=== PATIENT | female | born 1985 | race American Indian/Alaskan Native ===

== ENCOUNTER 2016-12-23 20:40 | Inpatient (IN) | payer OTHER ==
[2016-12-23 21:37] LABS: BASOPHIL 0.3 % (0-2.0); EOSINOPHIL 1.1 % (0-4.5); MCH 29.1 pg (25.7-33.7); MCHC 34.5 g/dl (32.0-36.0); MEAN CELL VOLUME 84.4 fl (80-96); MEAN PLT VOLUME 8.2 fl (7.5-11.1); NEUTROPHILS 67.8 % (42.8-82.8); PLATELET COUNT 223 K/MM3 (134-434); RDW 15.8 % (11.6-15.6); WHITE BLOOD COUNT 8.2 K/mm3 (4.0-10.0)
[2016-12-23] MEDS ORDERED: PROMETHAZINE HCL 25 MG/1 ML VIAL IVPUSH ONE (21:51)
[2016-12-23] MEDS ORDERED: BUTORPHANOL TARTRATE 1 MG/ML VIAL IVPB ONE (21:51)
--- NOTE | 2016-12-23 21:51 | HP ---
Past Medical History - Primary Care Physician PCP:: Anisa Casas - Admission Chief Complaint: Admission for postdates History Source: Patient - Past Surgical History Past Surgical History: Yes: None Hx Myomectomy: No Hx Transabdominal Cerclage: No - Smoking History Smoking history: Never smoked Have you smoked in the past 12 months: No - Alcohol/Substance Use Hx Alcohol Use: No Home Medications - Allergies Allergies/Adverse Reactions: Allergies Allergy/AdvReac Type Severity Reaction Status Date / Time No Known Allergies Allergy Verified 01/25/13 10:29 - Home Medications Home Medications: Ambulatory Orders Pnv No.25/Iron Fumarate/FA/Dha [-1 Capsule] 1 each PO 01/25/13 Acetaminophen [Tylenol .Regular Strength -] 325 mg PO Q3H PRN #2 tablet Ibuprofen [Motrin -] 200 mg PO Q4H PRN #2 tablet 01/27/13 Review of Systems - Review of Systems Constitutional: reports: No Symptoms Eyes: reports: No Symptoms HENT: reports: No Symptoms Neck: reports: No Symptoms Cardiovascular: reports: No Symptoms Respiratory: reports: No Symptoms Gastrointestinal: reports: No Symptoms Genitourinary: reports: No Symptoms Breasts: reports: No Symptoms Reported Musculoskeletal: reports: No Symptoms Integumentary: reports: No Symptoms Neurological: reports: No Symptoms Endocrine: reports: No Symptoms Hematology/Lymphatic: reports: No Symptoms Psychiatric: reports: No Symptoms Physical Exam - Maternity Constitutional: Yes: Well Nourished, No Distress Breast(s): Yes: WNL - Abdominal Exam/OB Number of Fetuses: Single Presentation: Vertex - Labs Lab Results: CBC, BMP 12/23/16 21:20 Assessment/Plan Postdates Plan cervidil
[2016-12-23 21:53] LABS: INR 0.96 (0.82-1.09); PROTHROMBIN TIME (PATIENT) 10.5 SEC (9.98-11.88)
[2016-12-23] MEDS ORDERED: DINOPROSTONE 10 MG VAGINAL SUPPOSITORY VG ONE (21:53)
[2016-12-23 21:56] LABS: ACTIVATED PTT 27.2 SECONDS (26.9-34.4)
[2016-12-23] MEDS: DEXTROSE 5%-LACTATED RINGERS 1,000 ML IV SCH (22:00)
[2016-12-23 22:10] LABS: CALCIUM 8.5 mg/dL (8.5-10.1); CREATININE 0.6 mg/dL (0.55-1.02)
[2016-12-23] MEDS ORDERED: TUBERCULIN PPD 5 TU/0.1ML SYRINGE (IN PATIENT USE ONLY) ID ONE (23:00)
[2016-12-23 23:03] VITALS: BMI 29.0
[2016-12-24] MEDS ORDERED: D5W-LR W/ 20 UNITS OXYTOCIN 1,000 ML IV ONE (06:00)
--- NOTE | 2016-12-24 10:38 | PN ---
Ante-Partal Exam - Subjective Subjective: Pt with mild cramping Vital Signs: Vital Signs Temperature 98.0 F 12/24/16 10:00 Pulse Rate 74 12/24/16 10:00 Respiratory Rate 18 12/24/16 10:00 Blood Pressure 131/76 12/24/16 10:00 O2 Sat by Pulse Oximetry (%) Bleeding: No Headache: No Visual changes: No Right upper quadrant pain: No - Contractions Contractions: Yes Regularity: Irregular Monitor Mode: External - Exam during Labor Category: I Monitor Accelerations: Present Exam: Vaginal Dilatation (cm): 1 cm Effacement (%): long Amniotic Membrane Status: Intact Presentation: Vertex - Intrapartum Hemorrhage Risk Risk Score: 0 Risk Level: Low Risk - Assessment/Plan Assessment/Plan: post dates cervidil Cat 1 Plan pitocin aug
[2016-12-24] MEDS ORDERED: OXYTOCIN 15 UNITS/ LR 250 ML 250 ML IVPB SCH (10:45)
[2016-12-24] MEDS ORDERED: TUBERCULIN PPD 5 TU/0.1ML SYRINGE (IN PATIENT USE ONLY) ID ONE (12:30)
[2016-12-24] MEDS ORDERED: BUTORPHANOL TARTRATE 1 MG/ML VIAL IVPUSH ONE (13:10)
[2016-12-24] MEDS ORDERED: PROMETHAZINE HCL 25 MG/1 ML VIAL IVPUSH ONE (13:10)
[2016-12-24] MEDS: DEXTROSE 5%-LACTATED RINGERS 1,000 ML IV SCH (14:00)
--- NOTE | 2016-12-24 19:07 | PN ---
Ante-Partal Exam - Subjective Subjective: Patient sleeping through contractions - s/p Stadol/Phenergan. Vital Signs: Vital Signs Temperature 98.1 F 12/24/16 18:00 Pulse Rate 57 L 12/24/16 18:00 Respiratory Rate 18 12/24/16 18:00 Blood Pressure 124/69 12/24/16 18:00 O2 Sat by Pulse Oximetry (%) Bleeding: No Headache: No Visual changes: No Right upper quadrant pain: No Pain (scale 1-10): 2 - Contractions Contractions: Yes Regularity: Regular Intensity: Mod/Strong Monitor Mode: External - Exam during Labor Heart Rate: 140 Variability: Moderate Category: II Monitor Accelerations: Absent Monitor Decelerations: Variable Exam: Vaginal Effacement (%): 90 Amniotic Membrane Status: Ruptured (AROM for clear fluid at this exam) Amniotic Fluid: Clear Presentation: Vertex Station: -1 - Intrapartum Hemorrhage Risk Medium Risk Factors: None High Risk Factors: None Risk Score: 0 Risk Level: Low Risk - Assessment/Plan Assessment/Plan: 31 y/o female with SIUP at 41 weeks, IOL for post term - FHTS cat 2 with variable decelerations, moderate variability noted - monitoring closely - IOL, s/p cervidil now on pitocin, continue augmentation - GBS negative
--- NOTE | 2016-12-24 20:12 | PN ---
Delivery - Delivery Vaginal Delivery: No Problems, Spontaneous Type of Anesthesia: Local Episiotomy/Laceration: 2nd degree EBL (cc): 300 Delivery, Single - Stages of Labor Date of Delivery: 12/24/16 Time of Delivery: 19:46 Date Placenta Delivered: 12/24/16 Time Placenta Delivered: 19:56 Placenta: Yes: Spontaneous - Condition of Aviation Engineer/Cloud Automation Tester Present: No Gender: Male Position: Right, OA (with posterior arm compound presentation) - 1 Minute Total Score: 9 5 Minutes Total Score: 9 - [place] Feeding Plan Initial Plan: Exclusive throughout hospitalization Remarks - Remarks Remarks: Uncomplicated delivery of baby boy from ARAM position Anterior shoulder (left) delivered with ease, posterior arm delivered in compound presentation with posterior shoulder remainder of infant delivered with ease cord clamped and cut 3VC noted 2nd degree lac repaired with 2-0 vicryl and 2-0 biosyn after injection of 10cc 1 %lidocaine EBL 300cc placenta delivered spontaneously and in tact mom stable baby to well baby nursery sponge and needle count correct
[2016-12-24] MEDS ORDERED: BENZOCAINE 28 GM HEMORRHOIDAL OINTMENT TP PRN (20:19)
[2016-12-24] MEDS ORDERED: METHYLERGONOVINE MALEATE 0.2 MG/1 ML AMP IM PRN (20:19)
[2016-12-24] MEDS ORDERED: WITCH HAZEL 50% (TUCKS) 40 PAD/JAR PAD TP PRN (20:19)
[2016-12-24] MEDS ORDERED: BENZOCAINE 20% 57 GM BOTTLE TP PRN (20:19)
[2016-12-24] MEDS ORDERED: BISACODYL 10 MG SUPP.RECT RC PRN (20:19)
[2016-12-24] MEDS: D5W-LR W/ 20 UNITS OXYTOCIN 1,000 ML IV SCH (20:30)
[2016-12-24] MEDS: IBUPROFEN 600 MG TABLET (FP) PO PRN (22:38)
[2016-12-24] MEDS: ACETAMINOPHEN 325 MG TABLET (FP) PO PRN (22:40)
[2016-12-25] MEDS: D5W-LR W/ 20 UNITS OXYTOCIN 1,000 ML IV SCH (05:35)
[2016-12-25] MEDS: ACETAMINOPHEN 325 MG TABLET (FP) PO PRN ×3 (07:43→22:40)
[2016-12-25] MEDS: IBUPROFEN 600 MG TABLET (FP) PO PRN ×3 (07:44→22:42)
--- NOTE | 2016-12-25 07:46 | PN ---
Post Progress Note - Subjective Subjective: Pt comfortable. Pain controlled. Tolerating diet, Ambulating, voiding. NO complaints. Type of Delivery: Vital Signs: Vital Signs Temperature 97.8 F 12/25/16 05:32 Pulse Rate 62 12/25/16 05:32 Respiratory Rate 20 12/25/16 05:32 Blood Pressure 112/50 12/25/16 05:32 O2 Sat by Pulse Oximetry (%) Uterus: Yes: Fundus Firm, Fundus below umbilicus Abdomen/GI: Yes: Abdomen soft, Passing flatus, Tolerating PO. No: Abdominal Distention, Tender Lochia: Yes: Rubra Lochia, amount: Small Extremities: Yes: Calves non-tender Perineum: Yes: Laceration (2nd degree) Activity: Ambulating - Labs Labs: CBC WBC 8.2 K/mm3 (4.0-10.0) 12/23/16 21:20 RBC 4.00 M/mm3 (3.60-5.2) 12/23/16 21:20 Hgb 11.6 GM/dL (10.7-15.3) 12/23/16 21:20 Hct 33.7 % (32.4-45.2) 12/23/16 21:20 MCV 84.4 fl (80-96) 12/23/16 21:20 MCHC 34.5 g/dl (32.0-36.0) 12/23/16 21:20 RDW 15.8 % (11.6-15.6) H 12/23/16 21:20 Plt Count 223 K/MM3 (134-434) 12/23/16 21:20 MPV 8.2 fl (7.5-11.1) 12/23/16 21:20 Neutrophils % 67.8 % (42.8-82.8) 12/23/16 21:20 Lymphocytes % 23.4 % (8-40) D 12/23/16 21:20 Monocytes % 7.4 % (3.8-10.2) 12/23/16 21:20 Eosinophils % 1.1 % (0-4.5) D 12/23/16 21:20 Basophils % 0.3 % (0-2.0) 12/23/16 21:20 Problem List - Problems (1) Vaginal delivery Code(s): O80 - ENCOUNTER FOR FULL-TERM UNCOMPLICATED DELIVERY Assessment/Plan 31 y/o PPD#1 s/p normal - AFVSS - Regular diet, PO pain meds, encourage ambulation - routine care
[2016-12-25 08:40] LABS: BASOPHIL 0.2 % (0-2.0); EOSINOPHIL 0.5 % (0-4.5); MCH 28.9 pg (25.7-33.7); MCHC 34.1 g/dl (32.0-36.0); MEAN CELL VOLUME 84.6 fl (80-96); MEAN PLT VOLUME 8.1 fl (7.5-11.1); NEUTROPHILS 75.1 % (42.8-82.8); PLATELET COUNT 202 K/MM3 (134-434); WHITE BLOOD COUNT 11.5 K/mm3 (4.0-10.0)
[2016-12-25] MEDS: PRENATAL VITAMINS W/ FOLIC ACID TABLET (FP) PO SCH (10:02)
[2016-12-25] MEDS ORDERED: SENNOSIDES/DOCUSATE COMBO (SENNA PLUS) TABLET (UD) PO PRN (22:00)
[2016-12-26 07:35] VITALS: BP 138/80; PULSE 76; TEMP 98
[2016-12-26] MEDS: PRENATAL VITAMINS W/ FOLIC ACID TABLET (FP) PO SCH (09:05)
--- NOTE | 2016-12-26 11:16 | DS ---
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 Vital Signs: Vital Signs Temperature 98 F 12/26/16 07:34 Pulse Rate 76 12/26/16 07:34 Respiratory Rate 18 12/26/16 07:34 Blood Pressure 138/80 12/26/16 07:34 O2 Sat by Pulse Oximetry (%) Constitutional: Yes: Well Nourished, No Distress, Calm Eyes: Yes: Conjunctiva Clear, EOM Intact HENT: Yes: Atraumatic, Normocephalic Neck: Yes: Supple Cardiovascular: Yes: Regular Rate and Rhythm Respiratory: Yes: Regular, CTA Bilaterally Gastrointestinal: Yes: Normal Bowel Sounds, Soft Uterus: Yes: Normal ....Post : Yes: Uterus firm, Uterus non-tender Wound/Incision: Yes: Clean/Dry, Well Approximated Neurological: Yes: Alert, Oriented Psychiatric: Yes: Alert, Oriented Labs: CBC, BMP 12/25/16 08:00 12/23/16 21:20 Delivery - Delivery Vaginal Delivery: No Problems, Spontaneous Type of Anesthesia: Local Episiotomy/Laceration: Perineal Extension/lac, 2nd degree EBL (cc): 300 Delivery, Single - Stages of Labor Date 1st Stage Initiatied: 12/24/16 Time 1st Stage Initiated: 10:00 Date 2nd Stage Initiated: 12/24/16 Time 2nd Stage Initiated: 19:40 Date of Delivery: 12/24/16 Time of Delivery: 19:46 Time Placenta Delivered: 19:56 Placenta: Yes: Spontaneous - Condition of Maxillofacial Prosthetics Dentist/Senior Assistant Manager Present: No Infant Gender: Male Weight: 7 lb 15 oz Position: Right, OA Total Hours ROM (Hrs/Mins): 56mins - 1 Minute Total Score: 9 5 Minutes Total Score: 9 - [place] Feeding Plan Initial Plan: Exclusive throughout hospitalization Discharge Summary Reason For Visit: LABOR Procedures: Principal: normal Hospital Course: unremarkable Condition: Good - Instructions Diet, Activity, Other Instructions: Physical activity Resume your normal everyday activity as tolerated but no heavy lifting or strenuous exercise until seen by your doctor. You may walk unlimited amounts and climb stairs. You may resume driving the car when you feel safe and comfortable behind the wheel. No sexual activity as instructed for 6 weeks. You may shower - no soaking in tubs or baths/pools for 6 weeks. . Wound care If you have stitches, they will dissolve, do not attempt to remove them Diet There are no dietary restrictions. Eat healthy, high-fiber foods. Drink 6 to 8 glasses of liquid each day. This will assist in keeping your bowels regular. Pain management You may take Tylenol or Ibuprofen (for example, Motrin, Advil etc.) over the counter for mild pain. Call MD for any of the following: Severe pain not relieved by medication Fever of 101 or higher Excessive bleeding or drainage Inability to urinate Referrals: Nano Rose DO [Staff Physician] - Disposition: HOME - Home Medications Comprehensive Discharge Medication List: Ambulatory Orders Pnv No.25/Iron Fumarate/FA/Dha [-1 Capsule] 1 each PO DAILY 01/25/13
== END 2016-12-26 13:05 | disposition home or self-care (01) | DRG 775 ==
LOC: JLDR 20:40 → UNDOADMIN 20:40 → JLDR 21:52 → J3W 12-24 21:58
PROVIDERS: ADMIT Obstetrics & Gynecology; ATTEND Obstetrics & Gynecology
PROC: 10E0XZZ Delivery of Products of Conception, External Approach (ICD-10-PCS; principal; 2016-12-24)
PROC: 0KQM0ZZ Repair Perineum Muscle, Open Approach (ICD-10-PCS; 2016-12-24)
PROC: 3E0P7GC Introduction of Other Therapeutic Substance into Female Reproductive, Via Natural or Artificial Opening (ICD-10-PCS; 2016-12-24)
DX: O48.0 Post-term pregnancy (principal); O70.1 Second degree perineal laceration during delivery; Z3A.41 41 weeks gestation of pregnancy; Z37.0 Single live birth
CPT/HCPCS: 36415; 59409; 80048; 85025; 85610; 85730; 86593; 86850; 86900; 86901